=== PATIENT | female | born 1945 | race Caucasian/White ===

== ENCOUNTER 2017-09-16 01:58 | Observation (INO) | payer OTHER ==
[~2017-09-16] VITALS: Ht 160 cm; Wt 59.4 kg
--- NOTE | 2017-09-16 02:11 | ED CARDIAC/CP/PALPITATIONS ---
History of Present Illness General Chief Complaint: Chest Pain Stated Complaint: C/C CHEST PAIN Source: patient, family Exam Limitations: no limitations, unable to give history Vital Signs & Intake/Output Vital Signs & Intake/Output Vital Signs Date Time Temp Pulse Resp B/P B/P Pulse O2 O2 Flow FiO2 Mean Ox Delivery Rate 09/16 0327 65 18 140/75 97 Room Air 09/16 0238 69 144/80 09/16 0234 145 150/82 09/16 0209 Room Air 09/16 0206 97.5 132 18 150/82 97 Room Air Allergies Coded Allergies: No Known Allergies (09/16/17) Reconcile Medications Hydrochlorothiazide 25 MG TABLET 1 TAB PO DAILY BP (Reported) Sertraline HCl 100 MG TABLET 1 TAB PO DAILY DEPRESSION (Reported) Triage Note: PT TO TRIAGE C/O CP RADIATING INTO L ARM THAT BEGAN WHEN LYING IN BED TONIGHT. PT STATES "I DONT KNOW IF IT'S JUST STRESS." HX HTN. 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 DENIES SOB. Triage Nurses Notes Reviewed? yes Onset: Gradual Duration: hour(s): Timing: recent history Quality/Severity: moderate Location: central Radiation: jaw Activities at Onset: sleep Prior Chest Pain/Card Workup: no prior cardiac workup Modifying Factors: Improves With: rest. Associated Symptoms: palpitations, chest pain HPI: 72 yo woman h/o htn and elevated cholesterol, presents with 6/10 chest pain, now 3/10, with palpitations mild dizziness, chest pressure that radiated to jaw. Her symptoms started at 11pm. She notes no shortness of breath, dyspnea, chills, fever, cough. She has not taken allergy medications or alcohol. She is otherwise well. Past History Travel History Traveled to [place] past 21 day No Medical History Any Pertinent Medical History? 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 No Review of Systems Review of Systems Constitutional: Reports: no symptoms. EENTM: Reports: no symptoms. Respiratory: Reports: no symptoms. Cardiovascular: Reports: no symptoms. GI: Reports: no symptoms. Genitourinary: Reports: no symptoms. Musculoskeletal: Reports: no symptoms. Skin: Reports: no symptoms. Neurological/Psychological: Reports: no symptoms. Hematologic/Endocrine: Reports: no symptoms. Immunologic/Allergic: Reports: no symptoms. All Other Systems: Reviewed and Negative Physical Exam Physical Exam Cardiovascular: bradycardia, irregularly irregular Rectal: normal rectal tone, heme negative stool Comments: Review of Systems - except as otherwise noted in HPI Physical Exam Physical Exam General Appearance: well developed/nourished, no apparent distress Head: atraumatic, normal appearance Eyes: Bilateral: normal appearance. Ears, Nose, Throat: normal pharynx, normal ENT inspection Neck: normal inspection, supple, full range of motion Respiratory: normal breath sounds, chest non-tender, no respiratory distress, quiet respiration, lungs clear Cardiovascular:tachy, irregular Gastrointestinal: normal bowel sounds, soft, non-tender, no organomegaly Back: normal inspection, normal range of motion Extremities: normal inspection, normal capillary refill, normal range of motion, no edema Neurologic/Psych: no motor/sensory deficits, awake, alert, oriented x 3 Skin: intact, normal color, warm/dry Core Measures ACS in differential dx? No CVA/TIA Diagnosis No Sepsis Present: No Sepsis Focused Exam Completed? No Progress Differential Diagnosis: afib, unstable angina vs other. Plan of Care: Orders Procedure Date/time Status Saline Lock 09/[address] in observation 09/16 357 Active ED Holding Orders 09/16 357 Active Vital Signs 09/16 357 Active Code Status 09/16 357 Active EKG 09/16 0243 Active Add-on Test (ER Only) 09/16 0226 Active PARTIAL THROMBOPLASTIN TIME 09/16 021 Complete PROTHROMBIN TIME 09/16 0211 Complete TROPONIN LEVEL 09/16 209 Complete LIPASE 09/16 021 Complete HEPATIC FUNCTION PANEL 09/16 021 Complete D-DIMER 09/16 021 Complete CBC WITHOUT DIFFERENTIAL 09/16 209 Complete BASIC METABOLIC PANEL 09/16 021 Complete AMYLASE 09/16 021 Complete EKG 09/16 0201 Active Current Medications Sig/Shannan Start time Last Medication Dose Stop Time Status Admin Heparin Sodium 25,000 UNIT Q24H 09/16 0230 UNVr 09/16 (Porcine) 0253 (Heparin) Sodium Chloride 500 ML Laboratory Tests 09/16/17 0211: Anion Gap 10, Estimated GFR > 60, BUN/Creatinine Ratio 21.7, Glucose 108 H, Calcium 9.9, Total Bilirubin 0.5, Direct Bilirubin 0.1, AST 26, ALT 26, Alkaline Phosphatase 48, Troponin I < 0.01, Total Protein 7.2, Albumin 4.3, Amylase 75, Lipase 217, PT 10.4, INR 0.95, APTT 29, D-Dimer High Sensitivty 281 H, CBC w Diff NO MAN DIFF REQ, RBC 4.64, MCV 94.5, MCH 33.2 H, MCHC 35.1, RDW 13.2, MPV 8.0, Gran % 39.6 L, Lymphocytes % 47.4, Monocytes % 8.3, Eosinophils % 3.8, Basophils % 0.9, Absolute Granulocytes 2.7, Absolute Lymphocytes 3.3, Absolute Monocytes 0.6, Absolute Eosinophils 0.3, Absolute Basophils 0.1 Diagnostic Imaging: Viewed by Me: Radiology Read. Discussed w/RAD: Radiology Read. Initial ED EKG: AFIB, afib with rvr Repeat EKG: changed (nsr, without acute changes) Departure Departure Disposition: STILL A PATIENT Condition: Stable Clinical Impression Primary Impression: Chest pain Secondary Impressions: Atrial fibrillation with rapid ventricular response Referrals: Maria Elena KHAN,Xavier Roberts (PCP/Family) Departure Forms: Customer Survey General Discharge Information Observation Note Spoke With: Marquez KHAN,Earle Collado Patient In: Non-ED OBS Care Area Rationale for Observation: My rational for observation is as follows . pt with chest pain, with brief run of afib with rapid ventricular response requiring parenteral medications for control. pt merits monitoring, rule out, cards evaluation. Critical Care Note Critical Care Note Critical Care Time: 30-74 min
[2017-09-16 02:19] LABS: ABSOLUTE BASOPHIL COUNT 0.1 /CUMM (0.0-0.2); ABSOLUTE EOSINOPHIL COUNT 0.3 /CUMM (0.0-0.7); ABSOLUTE GRANULOCYTE CT 2.7 /CUMM (1.4-6.5); ABSOLUTE LYMPH COUNT 3.3 /CUMM (1.2-3.4); ABSOLUTE MONOCYTE COUNT 0.6 /CUMM (0.10-0.60); BASOPHIL % 0.9 % (0.0-2.0); EOSINOPHIL % 3.8 % (0-5); GRANULOCYTE % 39.6 % (42.2-75.2); HEMATOCRIT 43.9 % (37-47); MEAN CORPUSCULAR HGB 33.2 PG (27.0-31.0); MEAN CORPUSCULAR HGB CONC 35.1 G/DL (33.0-37.0); MEAN CORPUSCULAR VOLUME 94.5 FL (81.0-99.0); PLATELET COUNT 276 /CUMM (130-400); RBC DISTRIBUTION WIDTH 13.2 % (11.5-14.5); RED BLOOD CELL CT 4.64 /CUMM (4.20-5.40); WHITE BLOOD CELL COUNT 6.9 /CUMM (4.8-10.8)
[2017-09-16 02:51] LABS: PT 10.4 SEC (9.4-12.5); PTT 29 SEC (25-37)
[2017-09-16] MEDS ORDERED: HYDROCHLOROTHIA25 M1 PO (03:04)
[2017-09-16] MEDS ORDERED: SERTRALINE HCL100 MG PO (03:04)
--- NOTE | 2017-09-16 03:41 | RADIOLOGY REPORT ---
EXAMINATION: XR PORTABLE CHEST CLINICAL INFORMATION: Chest pain COMPARISON: 05/14/2006 TECHNIQUE: Portable frontal view of the chest was obtained. FINDINGS: Lung volumes are symmetric. Minimal left basilar atelectasis is suspected without additional consolidation bilaterally. No evidence of pneumothorax, pleural effusion, or pulmonary edema. Cardiac size is within normal limits. Calcification is present at the aortic arch. No acute osseous findings are seen. IMPRESSION: No acute cardiopulmonary findings.
--- NOTE | 2017-09-16 04:00 | History & Physical ---
Lalit Escobar MD 09/16/17 0359: General Information and HPI MD Statement: I have seen and personally examined ROCIO MACIAS and documented this H&P. The patient is a 72 year old F who presented with a patient stated chief complaint of [chest pain, palpitations]. Source of Information: patient Exam Limitations: no limitations History of Present Illness: Patient is a 72-year-old female with a PMH significant for HTN, HLD, extensive family cardiac history including multiple first-degree relatives with early AK, who presents to the [facility] ED complaining of chest pain/pressure, and palpitations. She reports that she was trying to fall asleep yesterday evening she began experiencing palpitations and a pressure like pain which she described as moderate on the left side of the chest which radiated to the left side of the chest, she also reported associated tightness of her neck and nausea but denied any shortness of breath, lightheadedness, diaphoresis, vomiting, syncope. She took 4 baby aspirin prior to coming to the ED. Her symptoms abated after receiving full dose aspirin and 5 mg IV metoprolol in the ED. At time of examination, she is asymptomatic. Patient follows with employment case manager Dr. Jh Blakely, and had a stress test approximately 1 year ago which was negative. Of note patient has known HLD however has not been able to tolerate any medical therapy Allergies/Medications Allergies: Coded Allergies: No Known Allergies (09/16/17) Home Med list Hydrochlorothiazide 25 MG TABLET 1 TAB PO DAILY BP (Reported) Sertraline HCl 100 MG TABLET 1 TAB PO DAILY DEPRESSION (Reported) Past History Travel History Traveled to [place] past 21 day No Medical History Neurological: NONE EENT: NONE Cardiovascular: hypertension Respiratory: NONE Gastrointestinal: NONE Hepatic: NONE Renal: NONE Musculoskeletal: NONE Psychiatric: depression Endocrine: NONE Blood Disorders: NONE Cancer(s): NONE 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 FATHER FH: myocardial infarction, Onset: 40-50. BROTHER FH: myocardial infarction, Onset: 60+. SISTER FH: myocardial infarction, Onset: 50-60. Psychosocial History Primary Language: Occitan Smoking Status: Never Smoked ETOH Use: occasional use Illicit Drug Use: denies illicit drug use Functional Ability ADLs Independent: dressing, eating, toileting, bathing. Ambulation: independent IADLs Independent: shopping, housework, finances, food prep, telephone, transportation , medication admin. Review of Systems Review of Systems Constitutional: Denies: chills, fever, malaise. EENTM: Denies: blurred vision, double vision, visual changes. Cardiovascular: Reports: chest pain, palpitations. Denies: peripheral edema, syncope. Respiratory: Denies: cough, sputum production. GI: Reports: nausea. Denies: melena, bloody stool, vomiting. Genitourinary: Denies: discharge, dysuria, frequency. Musculoskeletal: Reports: no symptoms. Skin: Reports: no symptoms. Neurological/Psychological: Reports: no symptoms. Exam & Diagnostic Data Last 24 Hrs of Vital Signs/I&O Vital Signs Date Time Temp Pulse Resp B/P B/P Pulse O2 O2 Flow FiO2 Mean Ox Delivery Rate 09/16 0327 97.3 65 18 140/75 97 Room Air 09/16 0238 69 144/80 09/16 0234 145 150/82 09/16 0209 Room Air 09/16 0206 97.5 132 18 150/82 97 Room Air Intake & Output 09/16 0800 09/16 0000 09/15 1600 Intake Total 0 Output Total Balance 0 Intake, Oral 0 Patient 131 lb Weight Weight Standing Scale Measurement Method Physical Exam General Appearance Alert, Oriented X3, Cooperative, No Acute Distress Skin Temp/Moisture Exam: Warm/Dry Sepsis Skin Exam (color): Normal for Ethnicity HEENT Atraumatic, PERRLA, EOMI, Mucous Membr. moist/pink Cardiovascular Regular Rate, Normal S1, Normal S2, No Murmurs Lungs Clear to Auscultation, Normal Air Movement Abdomen Normal Bowel Sounds, Soft, No Tenderness Neurological Normal Speech, Strength at 5/5 X4 Ext, Normal Tone, Sensation Intact, Cranial Nerves 3-12 NL Extremities No Clubbing, No Cyanosis, No Edema Last 24 Hrs of Labs/Corey: Laboratory Tests 09/16/17 0211: Anion Gap 10, Estimated GFR > 60, BUN/Creatinine Ratio 21.7, Glucose 108 H, Calcium 9.9, Magnesium 1.7, Total Bilirubin 0.5, Direct Bilirubin 0.1, AST 26, ALT 26, Alkaline Phosphatase 48, Troponin I < 0.01, Total Protein 7.2, Albumin 4.3, Amylase 75, Lipase 217, TSH &T3 &Free T4 Intrp Pending, PT 10.4, INR 0.95, APTT 29, D-Dimer High Sensitivty 281 H, CBC w Diff NO MAN DIFF REQ, RBC 4.64, MCV 94.5, MCH 33.2 H, MCHC 35.1, RDW 13.2, MPV 8.0, Gran % 39.6 L, Lymphocytes % 47.4, Monocytes % 8.3, Eosinophils % 3.8, Basophils % 0.9, Absolute Granulocytes 2.7, Absolute Lymphocytes 3.3, Absolute Monocytes 0.6, Absolute Eosinophils 0.3, Absolute Basophils 0.1 Diagnostic Data EKG Results initial EKG - A fib HR 136, QTc 422 follow-up EKG- NSR HR 69 with nonspecific T wave changes in V3-V6 CXR Results Lung volumes are symmetric. Minimal left basilar atelectasis is suspected without additional consolidation bilaterally. No evidence of pneumothorax, pleural effusion, or pulmonary edema. Cardiac size is within normal limits. Calcification is present at the aortic arch. No acute osseous findings are seen. IMPRESSION: No acute cardiopulmonary findings. Assessment/Plan Assessment: Patient is a 72-year-old female with a PMH significant for HTN, HLD, extensive family cardiac history including multiple first-degree relatives with early AK, who presents to the [facility] ED complaining of chest pain/pressure, and palpitations. Vital signs on admission: T 97.5, P132 (decreased to 60s after resolution of A. fib), RR 18, BP 150/82, pulse ox 97% on room air Labs: CBC unremarkable, potassium 3.4, troponin <0.01, d-dimer 281 Problem list #Paroxysmal A. fib with RVR, now in normal sinus rhythm #Hypokalemia #chest pain, strong family history of cardiovascular disease #Chronic medical problems including HTN, HLD Plan -Observe on telemetry -Continuous telemetry monitoring -Serial troponins and EKGs -Echocardiogram -Cardiology consult will be placed in a.m. -Follow-up thyroid function tests, magnesium -potassium repleted, follow-up repeat BEP -Continue home medication list -Start metoprolol 12.5 twice daily Diet: Heart healthy DVT prophylaxis: Subcutaneous heparin, Alps CODE STATUS: Full code As Ranked By This Provider Problem List: 1. Atrial fibrillation with rapid ventricular response 2. Chest pain Core Measures/Misc (01/01) Acute Coronary Syndrome ACS Diagnosis: No Congestive Heart Failure Congestive Heart Failure Diagnosis No Cerebrovascular Accident CVA/TIA Diagnosis: No VTE (View Protocol) VTE Risk Factors Age>40 No Mechanical VTE Prophylaxis d/t N/A MechProphylax Ordered No VTE Pharm Prophylaxis d/t NA PharmProphylax ordered Sepsis (View protocol) Sepsis Present: No If YES complete Sepsis Event Note If YES complete Sepsis Event Note Observation Initial Note - I have personally examined ROCIO MACIAS on 09/16/17 at 0509. The disposition of ROCIO MACIAS is uncertain at this time and before a determination can be made, she requires a period of observation for the following reasons [a fib and chest pain] [facility] 09/16/17 0521: Core Measures/Misc (01/01) Sepsis (View protocol) If YES complete Sepsis Event Note If YES complete Sepsis Event Note Resident Review Statement Resident Statement: examined this patient, discussed with finance intern, agreed with finance intern, discussed with family Other Findings: This is 72-year-old female with past medical history significant for hypertension, hyperlipidemia, extensive cardiac family history who presented to the ED with a chief complaint of palpitation and chest pain. Her symptoms started last night as palpitation and pressure-like, continuous, moderate to severe, left-sided chest pain. She was trying to fall asleep when the pain started. She reports nausea but denies any other symptom. The patient talk total of 325 mg of aspirin on her way to the ED. her symptom disappeared after she received another 325 mg aspirin and 5 mg of IV metoprolol while in the ED. initial EKG proved A. fib, she converted to normal sinus rhythm after the IV metoprolol. She is following with Dr. Martini and had a stress test done around a year ago without significant finding. She has a history of dyslipidemia, however she was not able to tolerate any anti-dyslipidemic medications. Problem list * Hypertension * Hyperlipidemia * Depression * New onset A. fib * Strong cardiac family history with early onset AK Plan * normal TSH, no signs of infection, chest x-ray did not show acute cardiopulmonary finding, in NSR * Admit to telemetry floor as an obes * Rule out ACS with serial troponin and EKG, first set is negative * Will start metoprolol 12.5 mg twice daily, until further recommendations by employment case manager * We will hold on anticoagulation, given she converted back to normal sinus rhythm with a less than 48 hours, especially that she need to be off anticoagulation for spinal injection for chronic pain. * Echocardiogram * We will check TSH * We will replete potassium and check magnesium level * Heart healthy diet * DVT prophylaxis with subcu heparin * Full code Earle Zayas MD 09/16/17 0535: Core Measures/Misc (01/01) Sepsis (View protocol) If YES complete Sepsis Event Note If YES complete Sepsis Event Note Attending MD Review Statement Attending Statement Attending MD Statement: examined this patient, discuss w/resident/PA/DANCE INSTRUCTOR, agreed w/resident/PA/DANCE INSTRUCTOR, discussed with nursing Attending Assessment/Plan: Ms. Macias is a 72-year-old female with history of hypertension dyslipidemia extensive cardiac history in the family presents with complaints of palpitation and chest pain. And found to be in atrial fibrillation with rapid ventricular rate. Was given IV metoprolol. Patient spontaneously converted to sinus rhythm. Will obtain echocardiogram and thyroid function tests. Obtain cardiology consultation. Trend EKG and cardiac enzymes. Replace electrolytes and repeat. DVT prophylaxis with subcutaneous heparin. Patient will be in telemetry Under observation status.
[2017-09-16 06:22] VITALS: BP 128/80
[2017-09-16 08:34] VITALS: BP 132/80
--- NOTE | 2017-09-16 09:28 | Cons- Cardiology ---
General Information and HPI Consulting Request Date of Consult: 09/16/17 Requested By: Earle Zayas MD Reason for Consult: Paroxysmal atrial fibrillation; chest discomfort Source of Information: patient, old records Exam Limitations: no limitations History of Present Illness: The patient is a very nice 72-year-old female who is followed by Dr. Arredondo and Jh Martini as her primary physician and primary check services clerk. The patient has a past medical history significant for hypertension, hyperlipidemia, and a strong family history of cardiac issues. The patient presented to the emergency room last evening with complaints of chest pressure and palpitations. While trying to fall asleep, she developed palpitations and a pressure sensation in her chest. The symptoms radiated up to the left side of her chest. In the emergency room, she was noted to be in atrial fibrillation. Following the administration of metoprolol, she reverted to sinus rhythm. Since that time, she has been asymptomatic. The patient notes that she had a similar very brief episode of these symptoms more than a year ago. Also, according to the patient, she had a stress test 1 year ago which was normal. She does have a history of hyperlipidemia, however, and has been intolerant of any statin therapy. At the time I saw the patient, she was sitting in bed, asymptomatic. No recurrence of any arrhythmias noted on the monitor Allergies/Medications Allergies: Coded Allergies: No Known Allergies (09/16/17) Home Med List: Hydrochlorothiazide 25 MG TABLET 1 TAB PO DAILY BP (Reported) Metoprolol Tartrate 25 MG TABLET 0.5 TAB PO BID RAPID HEART RATE . Sertraline HCl 100 MG TABLET 1 TAB PO DAILY DEPRESSION (Reported) Current Medications: Current Medications Sig/Shannan Start time Last Medication Dose Route Stop Time Status Admin Aspirin 0 .STK-MED ONE 09/16 0252 DC PO Aspirin 325 MG ONCE ONE 09/16 0230 DC 09/16 PO 09/16 023 0248 Diltiazem HCl 125 MG Q24H 09/16 023 DC Dextrose/Water 100 ML IV Heparin Sodium 5,000 UNIT Q8 09/16 0600 AC (Porcine) SC Heparin Sodium 0 .STK-MED ONE 09/16 0237 DC (Porcine) .ROUTE Heparin Sodium 5,000 UNIT ONCE ONE 09/16 0230 DC 09/16 (Porcine) IV 09/16 0231 0248 Heparin Sodium 25,000 UNIT Q24H 09/16 0230 DC 09/16 (Porcine) IV 0253 Sodium Chloride 500 ML Hydrochlorothiazide 25 MG DAILY 09/16 0900 AC 09/16 PO 0833 Magnesium Sulfate 1 GM ONCE ONE 09/16 529 AC 09/16 Dextrose/Water 100 ML IV 09/16 928 08 Metoprolol Tartrate 12.5 MG BID 09/16 09 AC 09/16 PO 0834 Metoprolol Tartrate 0 .STK-MED ONE 09/16 0237 DC IV Metoprolol Tartrate 5 MG ONCE ONE 09/16 023 DC 09/16 IV 09/16 023 023 Potassium Chloride 0 .STK-MED ONE 09/16 0450 DC PO Potassium Chloride 60 MEQ ONCE ONE 09/16 0430 DC 09/16 PO 09/16 043 044 Sertraline HCl 100 MG DAILY 09/16 09 DC PO Sertraline HCl 50 MG DAILY 09/16 0900 AC PO Past History Travel History Traveled to [place] past 21 day No Medical History Blood Transfusion Hx: No Neurological: NONE EENT: NONE Cardiovascular: hypertension Respiratory: NONE Gastrointestinal: NONE Hepatic: NONE Renal: NONE Musculoskeletal: NONE Psychiatric: depression Endocrine: NONE Blood Disorders: NONE Cancer(s): NONE DIRECTOR HEMATOLOGY/Reproductive: NONE Surgical History Surgical History: cholecystectomy Family History Relations & Conditions If Any: MOTHER FH: myocardial infarction, Onset: 50-60. FATHER FH: myocardial infarction, Onset: 40-50. BROTHER FH: myocardial infarction, Onset: 60+. SISTER FH: myocardial infarction, Onset: 50-60. Psychosocial History Primary Language: Welsh Smoking Status: Never Smoked ETOH Use: occasional use Illicit Drug Use: denies illicit drug use Functional Ability ADLs Independent: dressing, eating, toileting, bathing. Ambulation: independent IADLs Independent: shopping, housework, finances, food prep, telephone, transportation , medication admin. Exam & Diagnostic Data Vital Signs and I&O Vital Signs Date Time Temp Pulse Resp B/P B/P Pulse O2 O2 Flow FiO2 Mean Ox Delivery Rate 09/16 0834 72 132/80 09/16 0622 98.1 64 20 128/80 95 Room Air 09/16 0544 Room Air 09/16 0518 98.4 62 18 132/84 95 Room Air 09/16 0327 97.3 65 18 140/75 97 Room Air 09/16 0238 69 144/80 09/16 0234 145 150/82 09/16 0209 Room Air 09/16 0206 97.5 132 18 150/82 97 Room Air Intake & Output 09/16 0809/16 0000 09/15 0800 09/15 0000 Intake Total 440 Output Total Balance 440 Intake, Oral 440 Patient 131 lb Weight Weight Standing Scale Measurement Method Physical Exam: General Appearance: well developed/nourished, alert, awake, oriented Head: normal HEENT: Normal Neck: supple, JVP normal, carotid upstrokes normal bilaterally, no masses or thyromegaly Respiratory: chest non-tender, clear to auscultation and percussion bilaterally Cardiovascular: regular rate/rhythm, normal S1, S2, 1/6 systolic murmur Abdomen: normal bowel sounds, soft, non-tender Extremities: normal inspection, no edema Vascular: Pulses are 2+ and equal bilaterally Neurologic: Grossly normal/nonfocal Labs/Corey Results: Laboratory Tests 09/16 09/16 0855 0820 Chemistry Troponin I Pending Coagulation APTT Cancelled 09/16 0211 Chemistry Sodium (137 - 145 mmol/L) 138 Potassium (3.5 - 5.1 mmol/L) 3.4 L Chloride (98 - 107 mmol/L) 101 Carbon Dioxide (22 - 30 mmol/L) 27 Anion Gap (5 - 16) 10 BUN (7 - 17 mg/dL) 13 Creatinine (0.5 - 1.0 mg/dL) 0.6 Estimated GFR (>60 ml/min) > 60 BUN/Creatinine Ratio (7 - 25 %) 21.7 Glucose (65 - 99 mg/dL) 108 H Calcium (8.4 - 10.2 mg/dL) 9.9 Magnesium (1.6 - 2.3 mg/dL) 1.7 Total Bilirubin (0.2 - 1.3 mg/dL) 0.5 Direct Bilirubin (< 0.4 mg/dL) 0.1 AST (14 - 36 U/L) 26 ALT (9 - 52 U/L) 26 Alkaline Phosphatase (<127 U/L) 48 Troponin I (< 0.11 ng/ml) < 0.01 Total Protein (6.3 - 8.2 g/dL) 7.2 Albumin (3.5 - 5.0 g/dL) 4.3 Amylase (30 - 110 U/L) 75 Lipase (23 - 300 U/L) 217 TSH &T3 &Free T4 Intrp (0.270 - 4.20 uIU/mL) 3.960 Coagulation PT (9.4 - 12.5 SEC) 10.4 INR (0.90 - 1.19) 0.95 APTT (25 - 37 SEC) 29 D-Dimer High Sensitivty (0 - 243 ng/ml) 281 H Hematology CBC w Diff NO MAN DIFF REQ WBC (4.8 - 10.8 /CUMM) 6.9 RBC (4.20 - 5.40 /CUMM) 4.64 Hgb (12.0 - 16.0 G/DL) 15.4 Hct (37 - 47 %) 43.9 MCV (81.0 - 99.0 FL) 94.5 MCH (27.0 - 31.0 PG) 33.2 H MCHC (33.0 - 37.0 G/DL) 35.1 RDW (11.5 - 14.5 %) 13.2 Plt Count (130 - 400 /CUMM) 276 MPV (7.4 - 10.4 FL) 8.0 Gran % (42.2 - 75.2 %) 39.6 L Lymphocytes % (20.5 - 51.1 %) 47.4 Monocytes % (1.7 - 9.3 %) 8.3 Eosinophils % (0 - 5 %) 3.8 Basophils % (0.0 - 2.0 %) 0.9 Absolute Granulocytes (1.4 - 6.5 /CUMM) 2.7 Absolute Lymphocytes (1.2 - 3.4 /CUMM) 3.3 Absolute Monocytes (0.10 - 0.60 /CUMM) 0.6 Absolute Eosinophils (0.0 - 0.7 /CUMM) 0.3 Absolute Basophils (0.0 - 0.2 /CUMM) 0.1 Diagnostic Data EKG Results ECG #1-atrial for ablation with rapid ventricular rate and diffuse nonspecific ST segment changes ECG #2-sinus rhythm with nonspecific anterior ST-T changes ECG #3 - NSR with persistent anterolateral STT changes CXR Results FINDINGS: Lung volumes are symmetric. Minimal left basilar atelectasis is suspected without additional consolidation bilaterally. No evidence of pneumothorax, pleural effusion, or pulmonary edema. Cardiac size is within normal limits. Calcification is present at the aortic arch. No acute osseous findings are seen. IMPRESSION: No acute cardiopulmonary findings. Assessment/Plan Assessment/Plan Assessment: 1. Paroxysmal atrial fibrillation with associated chest discomfort - The patient has been asympotatic since reverting to NSR last evening. Her troponin x 2 is negative. Her ECG shows NSR with anterolateral STT changes which were not noted on her old ECGs. Her Echocardiogram shows normal LV function with no wallmotion abnormalities. 2. Strong family history of cardiac issues 3. Hyperlipidemia 4. Mild hypokalemia Recommendations: -At the moment, the patient is asymptomatic and her serial troponins are normal. Echocardiogram is pending; ECG changes noted. -Continue metoprolol 12.5 mg twice daily -Replete potassium and magnesium -I had an extended discussion with the patient about the importance of considering long-term anticoagulation in her case. Her chads vas score is 3. The patient notes, however, that she has upcoming back/epidural injections this week. After an extended discussion, in view of the fact that the episode of atrial fibrillation was self-limited and brief, and in view of the fact that she has upcoming back injections which require her to be off of anticoagulant therapy, we have elected to not institute anticoagulation today. The patient will follow up with Dr. Martini this week, and make plans for starting oral anticoagulation after her epidural injections this coming week. The patient understands that if she has any evidence of recurrent symptoms, this may need to be readdressed - The patient reportedly had a normal stress test this past year. In view of her symptoms while in rapid atrial fibrillation, her new ECG changes and her normal echocardiogram, I believe she will need reassessment of her coronary status as outpatient, with cardiology followup, followup ECG and likely followup nuclear stress test at least. She promises to contact Dr. Blakely on Monday. - The patient also plans to readdress her lipid issues with Dr. Blakely when she sees him. - The patient will return to the ER if there are any significant recurrent symptoms. Consult Acknowledgment - Thank you for your consult request.
--- NOTE | 2017-09-16 11:04 | PN- Att Addend ---
Attending Addendum Attending Brief Note Patient seen and examined. She feels well right now. She is a 72-year-old female with a past medical history of hypertension, hyperlipidemia, follows an outpatient with Dr. Jh Martini for cardiology. She came in with resting chest pain. Was radiating to her arm. In the ED she was in transient atrial fibrillation and converted after 1 dose of IV metoprolol. Initially anticoagulation was started but after she converted to sinus in less than a few hours the anticoagulation was stopped. She is ruled out with serial enzymes. Will follow-up as per cardiology. Right now we have her on the beta heidi low -dose by mouth with her hydrochlorothiazide and will follow-up.
[2017-09-16] MEDS ORDERED: METOPROLOL TART25 M1 PO ×4 (12:37→13:41)
--- NOTE | 2017-09-16 12:40 | Patient Discharge Instructions ---
Discharge Instructions General Discharge Information You were seen/treated for: afib Watch for these problems: palpitation chest pain shortness of breath dizziness Special Instructions: 1. Please start taking metoprolol 2. Please follow up with your crime scene analyst 3. You are not going on Anticoagulation at this time, but it is very important for your to follow up regarding this issue. 4. Please eat Potassium and Magnesium rich foods in your diet. Diet Continue normal diet: Yes Acute Coronary Syndrome Inclusion Criteria At DC or during hospital stay patient has or had the following: ACS DIAGNOSIS No Discharge Core Measures Meds if any: Prescribed or Continued at Discharge Meds if any: NOT Prescribed or Continued at Discharge Congestive Heart Failure Inclusion Criteria At DC or during hospital stay patient has or had the following: CHF DIAGNOSIS No Discharge Core Measures Meds if any: Prescribed or Continued at Discharge Meds if any: NOT Prescribed or Continued at Discharge Cerebrovascular accident Inclusion Criteria At DC or during hospital stay patient has or had the following: CVA/TIA Diagnosis No Discharge Core Measures Meds if any: Prescribed or Continued at Discharge Meds if any: NOT Prescribed or Continued at Discharge Venous thromboembolism Inclusion Criteria VTE Diagnosis No VTE Type NONE VTE Confirmed by (Test) NONE Discharge Core Measures - Per Current guidelines, there needs to be overlap - treatment for the first 5 days of Warfarin therapy. - If discharged on Warfarin prior to 5 days of - overlap therapy, the patient will need to be - assessed for post discharge needs including - *Post discharge parental anticoagulation - *Warfarin and/or parental anticoagulation education - *Follow up date to check INR post discharge At least 5 days overlap therapy as Inpatient No Meds if any: Prescribed or Continued at Discharge Note: Overlap Therapy is Warfarin and Anticoagulant Meds if any: NOT Prescribed or Continued at Discharge
--- NOTE | 2017-09-16 17:23 | ECHOCARDIOGRAM REPORT ---
ROCIO MACIAS Age: 72 : 1945 Gender: F Exam Date: 09/16/2017 11:15 Exam Location: 1 [address] Ht (in): 63 Wt (lb): 131 BSA: 1.63 BP: 128 / 80 Ordering Physician: Abundio Allan MD Referring Physician: Abundio Allan MD Technologist: Flores Miller [facility] Room Number: 185-2 Indications: Rhythm: Sinus Technical Quality: Fair, Technically difficult study FINDINGS Left Ventricle Normal size left ventricle. No obvious regional wall motion abnormalities. Normal left ventricular ejection fraction estimated at 55-60%. Right Ventricle Right ventricle not well visualized, grossly normal. Right Atrium Right atrial dilatation. Left Atrium Left atrial size at the upper limits of normal. Mitral Valve Mitral valve thickened. Trace mitral regurgitation. Aortic Valve Trileaflet aortic valve. Diffuse thickening (sclerosis) of the aortic valve cusps without reduced excursion. No aortic stenosis. No aortic regurgitation. Tricuspid Valve Tricuspid valve not well visualized, grossly normal. Moderate tricuspid regurgitation. Right ventricular systolic pressure estimated at 30 mmHg. Pulmonic Valve Pulmonic valve not well visualized, grossly normal. Pericardium No pericardial effusion. Great Vessels Normal size aortic root and proximal ascending aorta. CONCLUSIONS 1. This was a technically difficult examination. 2. Ipre-na-djxtoahx aortic sclerosis is present with no valvular stenosis or insufficiency. 3. Mitral leaflet thickening is present with minimal mitral insufficiency. 4. No significant pericardial fluid was detected on the study. 5. The left ventricular chamber size is normal with a normal ejection fraction and no visible resting wall motion abnormalities. 6. Moderate tricuspid insufficiency is present. Mild right atrial enlargement is noted. There is no evidence of pulmonary hypertension. 7. No prior study was available for comparison. Mere Piedra M.D. (Electronically Signed) Final Date: 16 September 2017 17:22 MEASUREMENTS (Male / Female) Normal Values 2D ECHO LV Diastolic Diameter PLAX 4.4 cm 4.2 - 5.9 / 3.9 - 5.3 cm LV Systolic Diameter PLAX 2.6 cm 2.1 - 4.0 cm LV Fractional Shortening PLAX 40.9 % 25 - 46 % LV Ejection Fraction 2D Teich 71.9 % IVS Diastolic Thickness 0.8 cm LVPW Diastolic Thickness 1.0 cm LV Relative Wall Thickness 0.4 LVOT Diameter 1.5 cm Aortic Root Diameter 3.1 cm LA Systolic Diameter LX 2.3 cm 3.0 - 4.0 / 2.7 - 3.8 cm LV Diastolic Length 4C 7.0 cm 6.9 - 10.3 cm LV Diastolic Area 4C 27.6 cm LV Diastolic Volume MOD 4C 89.0 cm LV Ejection Fraction MOD 4C 48.3 % LV Stroke Volume MOD 4C 43.0 cm LV Systolic Length 4C 6.9 cm LV Systolic Area 4C 19.2 cm LV Systolic Volume MOD 4C 46.0 cm LV Ejection Fraction MOD 2C 64.7 % LV Diastolic Volume 4C AL 93.2 cm 85 - 139 / 69 - 109 cm LV Systolic Volume 4C AL 45.5 cm LV Ejection Fraction 4C AL 51.1 % LV Stroke Volume 4C AL 47.6 cm LV Ejection Fraction 2C AL 64.2 % DOPPLER AV Peak Velocity 126.0 cm/s AV Peak Gradient 6.4 mmHg LVOT Peak Velocity 111.0 cm/s LVOT Peak Gradient 4.9 mmHg AV Area Cont Eq pk 1.6 cm Mitral E Point Velocity 46.9 cm/s Mitral A Point Velocity 71.6 cm/s Mitral E to A Ratio 0.7 MV Deceleration Time 264.0 ms TV Peak Velocity 246.0 cm/s PV Peak Velocity 105.0 cm/s PV Peak Gradient 4.4 mmHg LV E' Lateral Velocity 7.1 cm/s Mitral E to LV E' Lateral Ratio 6.6 LV E' Septal Velocity 5.8 cm/s Mitral E to LV E' Septal Ratio 8.2
== END 2017-09-16 13:40 ==
LOC: ERH 01:58 → ERHI 03:58 → 1NO 03:58 → ENRESERV 05:02 → 1NO 05:39 → ENPENDDIS 12:43 → 1NO 13:40
PROVIDERS: Pediatrics
DX: I48.0 Paroxysmal atrial fibrillation (principal); R07.89 Other chest pain; I10 Essential (primary) hypertension; E78.5 Hyperlipidemia, unspecified; F32.9 Major depressive disorder, single episode, unspecified; E87.6 Hypokalemia
CPT/HCPCS: 6020; 36592; 71045; 93005; 93010; 93306; 96374; 96375; 96376; G0378; J1644

== ENCOUNTER 2017-09-28 19:28 | Observation (INO) | payer OTHER ==
[~2017-09-28] VITALS: Ht 160 cm; Wt 58.8 kg
[~2017-09-28 19:28] MED LIST: HYDROCHLOROTHIA25 M1 PO; METOPROLOL TART25 M1 PO; SERTRALINE HCL100 MG PO
--- NOTE | 2017-09-28 20:10 | ED CARDIAC/CP/PALPITATIONS ---
History of Present Illness General Chief Complaint: Chest Pain Stated Complaint: "CP AND HEART PALPITATIONS X 45MINS" PER PT Source: patient, old records Exam Limitations: no limitations Vital Signs & Intake/Output Vital Signs & Intake/Output ED Intake and Output 09/30 0000 09/29 1200 Intake Total 1140 Output Total 850 Balance 290 Intake, IV 500 Intake, Oral 640 Output, Urine 850 Patient 130 lb Weight Allergies Coded Allergies: No Known Allergies (09/16/17) Reconcile Medications Metoprolol Tartrate 25 MG TABLET 1 TAB PO BID HEART RATE Sertraline HCl 100 MG TABLET 1 TAB PO DAILY DEPRESSION (Reported) Triage Note: PT TO TRIAGE C/O CP AND HEART PALPITATIONS X45 MIN THAT BEGAN AT REST. PER PT SEEN HERE RECENTLY FOR SAME, HX AFIB. DENIES N/V. PT NOT DIAPHORETIC, DENIES RADIATING PAIN, SOB, NUMBNESS/TINGLING OR DIZZINESS. EKG IN PROGRESS. Triage Nurses Notes Reviewed? yes Onset: Abrupt Duration: minute(s):, constant, continues in ED, waxing and waning Timing: single episode today Quality/Severity: moderate, pressure, POUNDING Location: substernal Radiation: L ARM Activities at Onset: rest Prior Chest Pain/Card Workup: PATIENT EVALUATED THE [facility] EMERGENCY DEPARTMENT 2 WEEKS AGO FOR SIMILAR SYMPTOM COMPLEX AND DIAGNOSED WITH ATRIAL FIBRILLATION, PLACED ON METOPROLOL. HPI: Patient presents for evaluation of a constant pounding chest pain and heart palpitations that began while watching TV at home. Patient does refer chest pain currently, described as a moderate pressure sensation. Patient states that although she has no associated dyspnea she became diaphoretic. She took 4 baby aspirin prior to arrival to the emergency department. Past History Travel History Traveled to [place] past 21 day No Medical History Any Pertinent Medical History? see below for history Neurological: NONE EENT: NONE Cardiovascular: AFIB, hypertension Respiratory: NONE Gastrointestinal: NONE Hepatic: NONE Renal: NONE Musculoskeletal: NONE Psychiatric: depression Endocrine: NONE Blood Disorders: NONE Cancer(s): NONE PRECISION HONER/Reproductive: NONE Surgical History Surgical History: cholecystectomy Psychosocial History What is your primary language Pashto Tobacco Use: Never used ETOH Use: occasional use Family History Family History, If Any: MOTHER FH: myocardial infarction, Onset: 50-60. FATHER FH: myocardial infarction, Onset: 40-50. BROTHER FH: myocardial infarction, Onset: 60+. SISTER FH: myocardial infarction, Onset: 50-60. Hx Contributory? No Review of Systems Review of Systems Constitutional: Reports: no symptoms. EENTM: Reports: no symptoms. Respiratory: Reports: no symptoms. Cardiovascular: Reports: see HPI. GI: Reports: no symptoms. Genitourinary: Reports: no symptoms. Musculoskeletal: Reports: no symptoms. Skin: Reports: see HPI. Neurological/Psychological: Reports: no symptoms. Hematologic/Endocrine: Reports: no symptoms. Immunologic/Allergic: Reports: no symptoms. All Other Systems: Reviewed and Negative Physical Exam Physical Exam Cardiovascular: SEE BELOW Comments: Gen.: Well-nourished, well-developed, no acute respiratory distress. Head: Normocephalic, atraumatic. Eyes: Normal inspection bilaterally Ears: Normal inspection bilaterally Nose: Normal inspection Throat/mouth : Moist mucosa Neck: Supple, full range of motion, no goiter Heart: IRRegular rate and rhythm, no murmurs rubs or gallops Lungs: Clear to auscultation bilaterally with normal air entry Chest: Nontender Back: Normal range of motion Abdomen: Soft, nontender, nondistended, normal bowel sounds Extremities: Normal range of motion grossly, equal radial pulses, no cyanosis clubbing or edema, calves nontender Neurologic: Cranial nerves grossly intact, speech is clear Skin: warm and dry Psychiatric: Calm, cooperative, no apparent delusions or hallucinations Core Measures ACS in differential dx? Yes CVA/TIA Diagnosis No Sepsis Present: No Sepsis Focused Exam Completed? No Progress Differential Diagnosis: atrial fibrillation, hyperthyroid, PSVT, PVCs/PACs, unstable angina, V-fib/V-Tach Plan of Care: Orders Procedure Date/time Status Discharge Patient 09/29 UNK Active Diagnostic Imaging: Discussed w/RAD: Radiology Read. CXR Impression: PATIENT: JACKI MACIAS PRESENT AGE: 72 PATIENT ACCOUNT NO: [id number] : 47 LOCATION: [facility] ORDERING PHYSICIAN: Aleks Castillo MD SERVICE DATE: 09/28/17 EXAM TYPE: RAD - XRY-PORTABLE CHEST XRAY EXAMINATION: XR PORTABLE CHEST CLINICAL INFORMATION: Rapid atrial fibrillation. COMPARISON: Chest 09/16/2017 TECHNIQUE: Portable frontal view of the chest was obtained. FINDINGS: No significant abnormality is noted involving the heart, lungs, mediastinum, bony thorax or soft tissues. IMPRESSION: Unremarkable chest examination. No change from 09/16/2017 chest exam. DICTATED BY: Severiano Schrader MD DATE/TIME DICTATED:09/28/172115 JEWELRY CASTING MODEL MAKER:MODESTA DATE/TIME TRANSCRIBED:09/28/172115 CONFIDENTIAL, DO NOT COPY WITHOUT APPROPRIATE AUTHORIZATION. <Electronically signed in Other Vendor System> SIGNED BY: Severiano Schrader MD 09/28/172119 Initial ED EKG: rate (130's), AFIB, nonspecific ST T wave chg Prior EKG: changed (nsr on prior) Repeat EKG: changed (NSR WITH NS ST CHANGES) Comments: 09/28/2017 8:59:11 PM I have updated Jacki on test results so far. She states that her chest pain has nearly resolved. She appears comfortable. Heart rate when at rest in the upper 90s. Blood pressure normal. 09/28/2017 10:00:03 PM patient's case discussed with Osman Santana MD. I have reviewed the patient's last hospitalization for her paroxysmal A. fib. Patient reverted back to normal sinus rhythm at declined anticoagulation given upcoming "back injections". Osman Santana MD does not feel the patient requires emergent anticoagulation given the duration of symptoms. He agrees with hospitalization for rate control. 09/28/2017 11:49:27 PM short time ago patient converted back to normal sinus rhythm. I'm attempting to contact Osman Santana MD to assess if this changes the treatment plan. Repeat EKG and troponin of been ordered. Departure Departure Disposition: STILL A PATIENT Condition: Stable Clinical Impression Primary Impression: Atrial fibrillation Referrals: Maria Elena KHAN,Xavier Roberts (PCP/Family) Departure Forms: Customer Survey General Discharge Information Prescriptions: Current Visit Scripts Metoprolol Tartrate 1 TAB PO BID #60 TAB Admission Note Documentation of Exam: Documentation of any treatments & extenuating circumstances including Concerns Regarding Discharge (functional status, medication knowledge or non-compliance, living conditions, etc.) that warrant an admission rather than observation: Observation Note Spoke With: Chloé Lanza MD Patient In: Non-ED OBS Care Area Rationale for Observation: My rational for observation is as follows: Patient presents with a second paroxysm of atrial fibrillation requiring IV Lopressor for rate control. Although she has returned to normal sinus rhythm during her emergency department stay, her paroxysmal atrial fibrillation places her at high risk of cardioembolic phenomenon including stroke. A rapid ventricular response but also place her at risk of hypotension and acute coronary syndrome. I feel she now requires hospitalization for continuous cardiac monitoring and adjustment of her rate controlling medications. In addition anticoagulation should be strongly considered given her repeated paroxysm of atrial fibrillation. Cardiology consultation should be obtained and echocardiogram considered to assess for wall motion abnormalities or valve disease. . Critical Care Note Critical Care Note Critical Care Time: 30-74 min
[2017-09-28 20:26] LABS: ABSOLUTE BASOPHIL COUNT 0 /CUMM (0.0-0.2); ABSOLUTE EOSINOPHIL COUNT 0.1 /CUMM (0.0-0.7); ABSOLUTE GRANULOCYTE CT 3.7 /CUMM (1.4-6.5); ABSOLUTE LYMPH COUNT 2.6 /CUMM (1.2-3.4); ABSOLUTE MONOCYTE COUNT 0.7 /CUMM (0.10-0.60); BASOPHIL % 0.5 % (0.0-2.0); EOSINOPHIL % 1.2 % (0-5); HEMATOCRIT 44.2 % (37-47); MEAN CORPUSCULAR HGB 32.5 PG (27.0-31.0); MEAN CORPUSCULAR HGB CONC 34.2 G/DL (33.0-37.0); MEAN CORPUSCULAR VOLUME 95.1 FL (81.0-99.0); MEAN PLATELET VOLUME 8.5 FL (7.4-10.4); PLATELET COUNT 251 /CUMM (130-400); RBC DISTRIBUTION WIDTH 13.3 % (11.5-14.5); RED BLOOD CELL CT 4.65 /CUMM (4.20-5.40); WHITE BLOOD CELL COUNT 7.1 /CUMM (4.8-10.8)
--- NOTE | 2017-09-28 21:20 | RADIOLOGY REPORT ---
EXAMINATION: XR PORTABLE CHEST CLINICAL INFORMATION: Rapid atrial fibrillation. COMPARISON: Chest 09/16/2017 TECHNIQUE: Portable frontal view of the chest was obtained. FINDINGS: No significant abnormality is noted involving the heart, lungs, mediastinum, bony thorax or soft tissues. IMPRESSION: Unremarkable chest examination. No change from 09/16/2017 chest exam.
--- NOTE | 2017-09-29 01:57 | History & Physical ---
Beverley Bustillo MD,Ami 09/29/17 0156: General Information and HPI MD Statement: I have seen and personally examined ROCIO MACIAS and documented this H&P. The patient is a 72 year old F who presented with a patient stated chief complaint of [heart palpitations]. Source of Information: patient, old records Exam Limitations: no limitations History of Present Illness: Patient is 72-year-old female with PMH of HTN, HLD, parox afib, extensive family cardiac history including multiple first-degree relatives with early OH presented to the ED with chief complaint of palpitation and chest pain. At the time of interview patient had already was without symptom. Patient noted that her symptoms started this evening at 6:30 pm, while at rest watching TV. Also reported chest pain, moderate pressure-like substernal chest pain, 5/10, radiation to left arm. She denied any SOB, nausea but reported some sweating and lightheadedness. Her symptoms lasted for about 30mins and she decided to come to ED. Patient took 4 baby aspirin before coming to ED. At the ED TNG did not help with pain and caused lightheadedness. Patient was admitted to 2 weeks ago for similar symptoms, was diagnosed with A. fib and was placed on metoprolol, yet with chadvasc of 3 she refused getting anticoagulation given planned back/epidural steroid injection (which she had on Monday). Patient follows with Dr. Simpson and had a stress test about a year ago which was negative. She also had a holter monitor 2 years ago that revealed possible Afib but she did not follow. She had appointment with Dr Sharma and was planned to have another cardiac stress test in 2 weeks. Patient also has history of hyperlipidemia, however he was not able to tolerate any statin therapy (due to muscle and stomach complications). She never smoked or drank alcohol. She reported >4 cardiac attack in first degree family members. 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 FATHER FH: myocardial infarction, Onset: 40-50. BROTHER FH: myocardial infarction, Onset: 60+. SISTER FH: myocardial infarction, Onset: 50-60. Psychosocial History Primary Language: Japanese ETOH Use: occasional use Functional Ability ADLs Independent: dressing, eating, toileting, bathing. Ambulation: independent IADLs Independent: shopping, housework, finances, food prep, telephone, transportation , medication admin. Review of Systems Review of Systems Constitutional: Reports: see HPI. Exam & Diagnostic Data Last 24 Hrs of Vital Signs/I&O Vital Signs Date Time Temp Pulse Resp B/P B/P Pulse O2 O2 Flow FiO2 Mean Ox Delivery Rate 09/29 0247 97.6 60 18 143/76 98 Room Air 09/28 2300 62 133/70 09/28 2202 115 100/78 09/28 2140 113 98/52 09/28 2139 132 98/52 09/28 2121 126 18 102/55 97 Room Air 09/28 2024 108 130/58 09/28 2016 144 161/86 09/28 1934 96.9 103 20 161/86 98 Room Air Intake & Output 09/29 0800 09/29 0000 09/28 1600 Intake Total 800 Output Total 400 Balance 400 Intake, IV 500 Intake, Oral 300 Output, Urine 400 Physical Exam General Appearance Alert, Oriented X3, Cooperative, No Acute Distress Skin No Significant Lesion Skin Temp/Moisture Exam: Warm/Dry Sepsis Skin Exam (color): Normal for Ethnicity HEENT Atraumatic, EOMI Cardiovascular Regular Rate, Normal S1, Normal S2, at time of interview Lungs Clear to Auscultation, Normal Air Movement Abdomen Soft, No Tenderness Neurological Normal Speech, Strength at 5/5 X4 Ext, Cranial Nerves 3-12 NL Extremities No Edema Last 24 Hrs of Labs/Corey: Laboratory Tests 09/28/17 2355: Troponin I 0.01 09/28/17 2014: Anion Gap 12, Estimated GFR > 60, BUN/Creatinine Ratio 21.1, Glucose 103 H, Calcium 10.9 H, Magnesium 1.7, Troponin I < 0.01, TSH 2.970, CBC w Diff NO MAN DIFF REQ, RBC 4.65, MCV 95.1, MCH 32.5 H, MCHC 34.2, RDW 13.3, MPV 8.5, Gran % 52.0, Lymphocytes % 36.9, Monocytes % 9.4 H, Eosinophils % 1.2, Basophils % 0.5 , Absolute Granulocytes 3.7, Absolute Lymphocytes 2.6, Absolute Monocytes 0.7 H , Absolute Eosinophils 0.1, Absolute Basophils 0 Assessment/Plan Assessment: Patient is 72-year-old female presented with chest pain and palpitaion PMH of HTN, HLD, parox afib, extensive family cardiac history including multiple first-degree relatives with early OH VS, Ph Ex at admission: HR max 144, BP 166/86 --> 98/52 EKG: intial afib, converted to sinus at the time of interview Labs at admission: CBC insignificant BEP: k 3.1 Imagings at admission: CXR: Unremarkable chest examination. No change from 09/16/2017 chest exam. Patient was placed under observation in telemetry floor for management of following conditions: Paroxysmal atrial fib Chest pain Chronic medical conditions - admit to tele floor - BP monitor and storage bin tender - continue home medications, recieved IV metoprolol in ED - consider Anticoag - Cardio consult in AM, Dr Santana aware - EKG and TN serial - consider stress test - npo in preparation FC NPO DVT ppx: ALPS and Lovenox As Ranked By This Provider Problem List: 1. Chest pain 2. Atrial fibrillation with rapid ventricular response Core Measures/Misc (01/01) Acute Coronary Syndrome ACS Diagnosis: No Congestive Heart Failure Congestive Heart Failure Diagnosis No Cerebrovascular Accident CVA/TIA Diagnosis: No VTE (View Protocol) VTE Risk Factors Age>40 No Mechanical VTE Prophylaxis d/t N/A MechProphylax Ordered No VTE Pharm Prophylaxis d/t NA PharmProphylax ordered Sepsis (View protocol) Sepsis Present: No If YES complete Sepsis Event Note If YES complete Sepsis Event Note Martin Benjamin 09/29/17 0201: General Information and HPI Allergies/Medications Home Med list Metoprolol Tartrate 25 MG TABLET 1 TAB PO BID HEART RATE Sertraline HCl 100 MG TABLET 1 TAB PO DAILY DEPRESSION (Reported) Core Measures/Misc (01/01) Sepsis (View protocol) If YES complete Sepsis Event Note If YES complete Sepsis Event Note Resident Review Statement Resident Statement: examined this patient, discussed with internal controls manager, agreed with internal controls manager Other Findings: This is a 72-year-old female with past medical history of hypertension, hyperlipidemia, extensive family cardiac history of multiple first-degree relatives with early OH presents to [place] [facility] with recent admission to [place] on 16 September 2017 for chief complaint of chest pain and palpitations presents to [place] ER again with chief complaint of chest pain and palpitations for 45 minutes prior to presentation. She describes her chest pain to be pounding in nature, it began while she was watching TV, substernal in location, moderate pressure kind of pain associated with diaphoresis and palpitations. She denied any dyspnea or shortness of breath, paroxysmal nocturnal dyspnea, nausea, vomiting, diarrhea, constipation, recent fever sore throat. Vitals on presentation temperature of 96.9, pulse of 103 up to 144, respiration of 18, blood pressure of 130/58, troponin I 98/52, up again to 133/70. Physical exam: Relevant labs white count of 7.1, H/H of 15.1/44.2, platelets of 251. Sodium of 139, potassium of 3.4, BUN/creatinine 19/0.9, glucose of 103, calcium of 10.9. Initial ED EKG showed atrial fibrillation with a rate of 130s Chest x-ray did not show any acute cardiopulmonary changes. She received a one-time of 5 mg IV Lopressor, 0.5 mg nitroglycerin and another 5 mg IV Lopressor with a 500 mL of normal saline bolus. Last echocardiogram 16 September 2017 showed left ventricular ejection fraction of 55- 60%, no obvious wall motion abnormality right ventricular systolic pressure 30 mmHg. 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 We will admit him to telemetry under observation for 24 hours. Problem list along with assessment and plan. Problem #1 atrial fibrillation with rapid ventricular rate. Problem #2 chest pain with palpitations with positive family history of premature cardiovascular disease. Problem #3 hypokalemia. Problem #4 hypertension. Problem #5 hyperlipidemia, not treated with statin. Plan. Continue to observe the patient on telemetry floor, continue to monitor intake and output, troponin and EKG 3, continue rate control with metoprolol, will hold off anticoagulation for now. Check thyroid function tests. Continue to maintain potassium above 4 and magnesium of 2, recent echocardiogram therefore no need to repeat echo, cardiology consult with Dr. D'reynaga in the morning.Patient has stress test planned as OP in 2 weeks, will keep npo in case gets planned for stres test in am ,ct metoprolol 12.5 BID for now. Patient has [id number] score of 3, consider to start group home AC. NPO DVT prophylaxis with heparin. Full code. Chloé Lanza 09/29/17 0548: Core Measures/Misc (01/01) Sepsis (View protocol) If YES complete Sepsis Event Note If YES complete Sepsis Event Note Attending MD Review Statement Attending Statement Attending MD Statement: examined this patient, discuss w/resident/PA/CONTACT LENS TECHNICIAN, agreed w/resident/PA/CONTACT LENS TECHNICIAN, reviewed EMR data (avail), reviewed images, amended to note Attending Assessment/Plan: CC: Chest pain and palpitations PMH: HTN, HLD Patient came to ER for left-sided chest pain and palpitation that started approximately 45 minutes prior to arrival to ER. Chest pain was radiating to axilla, denied any lightheadedness or vision double vision neurological weakness. No recent infection. Patient was at rest when this episode happened. She took 4 baby aspirins at home without much relief so she came to ER. Patient had similar episode on September 16. Patient was observed in hospital at that time and was started on metoprolol. Patient is expected to have outpatient stress test in 1 week. Currently she does not have any pain or palpitation, appears comfortable , complete ROS unremarkable. Vitals: Temperature 96.9, pulse 103, RR 20, blood pressure 161/86, saturating 98 % on room air On exam: A O 3, cooperative, no acute distress, neck supple, JVD normal, no lymphadenopathy, mucosa moist, no focal neurological deficit, no dependent edema , no obvious skin rashes or inflammation CVS: S1-S2, RRR. RS: Clear to auscultate bilaterally. Abdomen: Soft, NT, ND, bowel sounds present. CXR: Unremarkable chest examination. No change from 09/16/2017 chest exam. Assessment and plan 72-year-old female with past medical history significant for HTN, HLD and very significant family history for CAD presented in ER for palpitations and chest pain. Patient has history of paroxysmal atrial fibrillation, recently hospitalized on September 16 for the similar episode. Patient's heart rate was in 140s on arrival and received 5 mg of IV metoprolol followed by Nitropatch. Her blood pressure dropped to 98/52, Nitropatch was discontinued and she was hydrated with normal saline. Patient converted to spontaneous sinus rhythm. Initial ECG shows rate related ST depression in lateral leads. Patient is expected to have outpatient stress test, we will get cardiology involved if they want to get the stress test done while in hospital. Her chest pain appears secondary to a rapid heart rate and demand but at the same time ACS should be ruled out. Her [id number] Vasc score is 3 and will require anticoagulation, we will obtain cardiology opinion. + Chest pain rule out ACS + Paroxysmal A. fib with rapid ventricular rate + History of HTN, HLD - Place in observation on telemetry - Continuous telemetry monitoring - Serial troponin and EKGs - Check magnesium and phosphorus - Cardiology consult in a.m. - Continue aspirin, beta heidi - Nothing by mouth for now if stress test need to be done tomorrow. - Need to start oral anticoagulation in a.m. after cardiology evaluation
[2017-09-29 03:38] VITALS: BP 132/84
[2017-09-29 06:27] VITALS: BP 122/68
[2017-09-29 08:00] LABS: ABSOLUTE BASOPHIL COUNT 0 /CUMM (0.0-0.2); ABSOLUTE EOSINOPHIL COUNT 0.1 /CUMM (0.0-0.7); ABSOLUTE LYMPH COUNT 2.2 /CUMM (1.2-3.4); ABSOLUTE MONOCYTE COUNT 0.6 /CUMM (0.10-0.60); BASOPHIL % 0.3 % (0.0-2.0); EOSINOPHIL % 1.9 % (0-5); GRANULOCYTE % 51.3 % (42.2-75.2); HEMATOCRIT 40.1 % (37-47); MEAN CORPUSCULAR HGB 33.1 PG (27.0-31.0); MEAN CORPUSCULAR HGB CONC 34.5 G/DL (33.0-37.0); MEAN PLATELET VOLUME 8.8 FL (7.4-10.4); PLATELET COUNT 213 /CUMM (130-400); RBC DISTRIBUTION WIDTH 13.6 % (11.5-14.5); RED BLOOD CELL CT 4.18 /CUMM (4.20-5.40); WHITE BLOOD CELL COUNT 5.9 /CUMM (4.8-10.8)
--- NOTE | 2017-09-29 10:59 | Cons- Cardiology ---
General Information and HPI Consulting Request Date of Consult: 09/29/17 Requested By: Chloé Lanza MD Reason for Consult: Atrial fibrillation Source of Information: patient, family, old records History of Present Illness: This is a 72-year-old female with a recent diagnosis of symptomatic atrial fibrillation and hypertension who presents to [facility] with a chief complaint of acute onset palpitations along with chest discomfort. The patient was seen here in the hospital recently with an episode of atrial fibrillation and was discharged and has been following up in our office. Anticoagulation has been deferred due to recent elective epidural injections for lower back pain. Recent echocardiogram showed a normal ejection fraction. During her previous hospitalization she spontaneously converted to sinus rhythm and on this presentation she also spontaneously converted to sinus rhythm. Prior to the episode she reports no exertional chest pain, shortness of breath, or decrease in exertional tolerance. Denies headache, slurring speech, or focal weakness. She tells me she did have the epidural injection on Monday. Denies any subjective fever or cough. Allergies/Medications Allergies: Coded Allergies: No Known Allergies (09/16/17) Home Med List: Hydrochlorothiazide 25 MG TABLET 1 TAB PO DAILY BP (Reported) Metoprolol Tartrate 25 MG TABLET 0.5 TAB PO BID RAPID HEART RATE . Sertraline HCl 100 MG TABLET 1 TAB PO DAILY DEPRESSION (Reported) Current Medications: Current Medications Sig/Shannan Start time Last Medication Dose Route Stop Time Status Admin Enoxaparin Sodium 40 MG DAILY 09/29 0900 AC 09/29 SC 0805 Metoprolol Tartrate 0 .STK-MED ONE 09/29 2131 DC IV Metoprolol Tartrate 5 MG ONCE ONE 09/28 2129 DC 09/28 IV 09/28 Metoprolol Tartrate 5 MG ONCE ONE 09/28 2014 DC 09/28 IV 09/28 Metoprolol Tartrate 0 .STK-MED ONE 09/28 2010 DC IV Nitroglycerin 0 .STK-MED ONE 09/28 2017 DC TOP Nitroglycerin 0.5 GM ONCE ONE 09/28 2014 DC 09/28 TOP 09/28 Potassium Chloride 0 .STK-MED ONE 09/29 0249 DC PO Potassium Chloride 40 MEQ ONCE ONE 09/29 0245 DC 09/29 PO 09/29 024 0251 Sodium Chloride 500 ML BOLUS ONE 09/28 2129 DC 09/28 IV 09/28 2228 2140 Vancomycin HCl 0 .STK-MED ONE 09/28 2221 DC .ROUTE Review of Systems Review of Systems: Review of systems as per HPI. The remainder of a 10 point review of systems was reviewed and was otherwise negative. 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 FATHER FH: myocardial infarction, Onset: 40-50. BROTHER FH: myocardial infarction, Onset: 60+. SISTER FH: myocardial infarction, Onset: 50-60. Psychosocial History Primary Language: Albanian Smoking Status: Never Smoked ETOH Use: occasional use Functional Ability ADLs Independent: dressing, eating, toileting, bathing. Ambulation: independent IADLs Independent: shopping, housework, finances, food prep, telephone, transportation , medication admin. Exam & Diagnostic Data Vital Signs and I&O Vital Signs Date Time Temp Pulse Resp B/P B/P Pulse O2 O2 Flow FiO2 Mean Ox Delivery Rate 09/29 626 97.8 58 18 122/68 98 Room Air 09/29 626 97.8 58 18 122/68 98 Room Air 09/29 0338 98.0 58 20 132/84 98 Room Air 09/29 0247 97.6 60 18 143/76 98 Room Air 09/28 2300 62 133/70 09/28 2202 115 100/78 09/28 2140 113 98/52 09/28 2138 132 98/52 09/28 2121 126 18 102/55 97 Room Air 09/28 2024 108 130/58 09/28 2016 144 161/86 09/28 1934 96.9 103 20 161/86 98 Room Air Intake & Output 09/29 1600 09/29 0800 09/29 0000 09/28 1600 09/28 0800 09/28 0000 Intake Total 1140 Output Total 850 Balance 290 Intake, IV 500 Intake, Oral 640 Output, Urine 850 Patient 130 lb Weight Physical Exam: General: no apparent distress. Alert. Eyes: No obvious scleral icterus. HEENT: No jugular venous distention or abnormal jugular venous pulsations. Cardiovascular: Normal intensity S1/S2. PMI not grossly displaced. Respiratory: Lungs clear to auscultation bilaterally. Abdomen: Soft, nontender with no guarding or rebound tenderness. Musculoskeletal: No clubbing or cyanosis noted Skin: warm Neurologic: No gross focal deficits noted. Lymph: No gross lymphadenopathy. Labs/Corey Results: Laboratory Tests 09/29 09/29 09/29 09/28 1010 0709 0330 2355 Chemistry Sodium (137 - 145 mmol/L) 140 Potassium (3.5 - 5.1 mmol/L) 4.0 Chloride (98 - 107 mmol/L) 104 Carbon Dioxide (22 - 30 mmol/L) 29 Anion Gap (5 - 16) 7 BUN (7 - 17 mg/dL) 16 Creatinine (0.5 - 1.0 mg/dL) 0.7 Estimated GFR (>60 ml/min) > 60 BUN/Creatinine Ratio (7 - 25 %) 22.9 Troponin I (< 0.11 ng/ml) Pending 0.01 0.01 Triglycerides (<150 mg/dL) 69 Cholesterol (<200 MG/DL) 265 H LDL Cholesterol, Calc (65 - 129 mg/dL) 198 H HDL Cholesterol (40 - 60 mg/dL) 54 Cholesterol/HDL Ratio (0.00 - 4.23 %) 4.9 H Hematology CBC w Diff NO MAN DIFF REQ WBC (4.8 - 10.8 /CUMM) 5.9 RBC (4.20 - 5.40 /CUMM) 4.18 L Hgb (12.0 - 16.0 G/DL) 13.9 Hct (37 - 47 %) 40.1 MCV (81.0 - 99.0 FL) 96.0 MCH (27.0 - 31.0 PG) 33.1 H MCHC (33.0 - 37.0 G/DL) 34.5 RDW (11.5 - 14.5 %) 13.6 Plt Count (130 - 400 /CUMM) 213 MPV (7.4 - 10.4 FL) 8.8 Gran % (42.2 - 75.2 %) 51.3 Lymphocytes % (20.5 - 51.1 %) 37.2 Monocytes % (1.7 - 9.3 %) 9.3 Eosinophils % (0 - 5 %) 1.9 Basophils % (0.0 - 2.0 %) 0.3 Absolute Granulocytes (1.4 - 6.5 /CUMM) 3.0 Absolute Lymphocytes (1.2 - 3.4 /CUMM) 2.2 Absolute Monocytes (0.10 - 0.60 /CUMM) 0.6 Absolute Eosinophils (0.0 - 0.7 /CUMM) 0.1 Absolute Basophils (0.0 - 0.2 /CUMM) 0 09/28 2013 Chemistry Sodium (137 - 145 mmol/L) 139 Potassium (3.5 - 5.1 mmol/L) 3.4 L Chloride (98 - 107 mmol/L) 99 Carbon Dioxide (22 - 30 mmol/L) 28 Anion Gap (5 - 16) 12 BUN (7 - 17 mg/dL) 19 H Creatinine (0.5 - 1.0 mg/dL) 0.9 Estimated GFR (>60 ml/min) > 60 BUN/Creatinine Ratio (7 - 25 %) 21.1 Glucose (65 - 99 mg/dL) 103 H Calcium (8.4 - 10.2 mg/dL) 10.9 H Magnesium (1.6 - 2.3 mg/dL) 1.7 Troponin I (< 0.11 ng/ml) < 0.01 TSH (0.270 - 4.200 uIU/mL) 2.970 Hematology CBC w Diff NO MAN DIFF REQ WBC (4.8 - 10.8 /CUMM) 7.1 RBC (4.20 - 5.40 /CUMM) 4.65 Hgb (12.0 - 16.0 G/DL) 15.1 Hct (37 - 47 %) 44.2 MCV (81.0 - 99.0 FL) 95.1 MCH (27.0 - 31.0 PG) 32.5 H MCHC (33.0 - 37.0 G/DL) 34.2 RDW (11.5 - 14.5 %) 13.3 Plt Count (130 - 400 /CUMM) 251 MPV (7.4 - 10.4 FL) 8.5 Gran % (42.2 - 75.2 %) 52.0 Lymphocytes % (20.5 - 51.1 %) 36.9 Monocytes % (1.7 - 9.3 %) 9.4 H Eosinophils % (0 - 5 %) 1.2 Basophils % (0.0 - 2.0 %) 0.5 Absolute Granulocytes (1.4 - 6.5 /CUMM) 3.7 Absolute Lymphocytes (1.2 - 3.4 /CUMM) 2.6 Absolute Monocytes (0.10 - 0.60 /CUMM) 0.7 H Absolute Eosinophils (0.0 - 0.7 /CUMM) 0.1 Absolute Basophils (0.0 - 0.2 /CUMM) 0 Diagnostic Data EKG Results Tracing was personally reviewed and shows atrial fibrillation 139 bpm with nonspecific STT abnormality CXR Results Unremarkable chest examination. No change from 09/16/2017 chest exam. Other Results Telemetry tracings were personally reviewed and shows sinus rhythm Recent echocardiogram 1. This was a technically difficult examination. 2. [id number] aortic sclerosis is present with no valvular stenosis or insufficiency. 3. Mitral leaflet thickening is present with minimal mitral insufficiency. 4. No significant pericardial fluid was detected on the study. 5. The left ventricular chamber size is normal with a normal ejection fraction and no visible resting wall motion abnormalities. 6. Moderate tricuspid insufficiency is present. Mild right atrial enlargement is noted. There is no evidence of pulmonary hypertension. 7. No prior study was available for comparison. Assessment/Plan Assessment/Plan 1. Paroxysmal symptomatic atrial fibrillation 2. History of hypertension 3. Recent epidural injection The patient presents with recurrent symptomatic atrial fibrillation but has again spontaneously converted to sinus rhythm. Recent echocardiogram as above with a normal ejection fraction and no evidence of mitral stenosis. We are holding off on initiating anticoagulation for now given her recent epidural injection but she will likely be able to start on oral anticoagulation when she follows up with her lieutenant governor next week. She is already scheduled for outpatient Holter monitor and stress test. I would recommend increasing her metoprolol to 25 mg p.o. twice daily and discontinuing her hydrochlorothiazide. She may be a candidate for atrial fibrillation in the future if she continues to have symptomatic recurrences. She should follow-up in our office next week. Juventino Santana MD [facility] Consult Acknowledgment - Thank you for your consult request.
[2017-09-29] MEDS ORDERED: METOPROLOL TART25 M1 PO (11:37)
--- NOTE | 2017-09-29 11:39 | Patient Discharge Instructions ---
Discharge Instructions General Discharge Information You were seen/treated for: Chest pain Special Instructions: -Please follow-up with your primary care doctor after discharge -Please follow-up with your director radio within 1 week of discharge for Holter monitor and stress test -On director radio's recommendation we are stopping 1 of blood pressure medication and increasing the dose of other for better control of heart rate. -You will need to be started on anticoagulation in the near future Diet Recommended Diet: Heart Healthy Activity Activity Self Limited: Yes Acute Coronary Syndrome Inclusion Criteria At DC or during hospital stay patient has or had the following: ACS DIAGNOSIS No Discharge Core Measures Meds if any: Prescribed or Continued at Discharge Meds if any: NOT Prescribed or Continued at Discharge Congestive Heart Failure Inclusion Criteria At DC or during hospital stay patient has or had the following: CHF DIAGNOSIS No Discharge Core Measures Meds if any: Prescribed or Continued at Discharge Meds if any: NOT Prescribed or Continued at Discharge Cerebrovascular accident Inclusion Criteria At DC or during hospital stay patient has or had the following: CVA/TIA Diagnosis No Discharge Core Measures Meds if any: Prescribed or Continued at Discharge Meds if any: NOT Prescribed or Continued at Discharge Venous thromboembolism Inclusion Criteria VTE Diagnosis No VTE Type NONE VTE Confirmed by (Test) NONE Discharge Core Measures - Per Current guidelines, there needs to be overlap - treatment for the first 5 days of Warfarin therapy. - If discharged on Warfarin prior to 5 days of - overlap therapy, the patient will need to be - assessed for post discharge needs including - *Post discharge parental anticoagulation - *Warfarin and/or parental anticoagulation education - *Follow up date to check INR post discharge At least 5 days overlap therapy as Inpatient No Meds if any: Prescribed or Continued at Discharge Note: Overlap Therapy is Warfarin and Anticoagulant Meds if any: NOT Prescribed or Continued at Discharge
--- NOTE | 2017-09-29 13:10 | PN- Att Addend ---
Attending Addendum Attending Brief Note 72F PMH HTN, HLD, presenting with palpitations found to be in rapid atrial fibrillation initially, pushed 5mg IV Metoprolol in ED with borderline hypotension, spontaneously converted to NSR overnight. Patient is asymptomatic and feels well today, HR NSR and well controlled. Repeat EKG and troponin negative. Patient is stable for discharge home. Seen by cardiology as inpatient, increased Metoprolol, discontinued HCTZ. Anti-coagulation held off due to recent epidural injection. Will be seen by cardiology in 2 days for follow up and for Holter monitor. Anti-coagulation will be started as an outpatient.
== END 2017-09-29 13:05 ==
LOC: ERH 19:28 → ERHI 09-29 00:31 → ENRESERV 09-29 02:37 → 1NO 09-29 03:01
PROVIDERS: Emergency Medicine; Internal Medicine
DX: I48.0 Paroxysmal atrial fibrillation (principal); R07.9 Chest pain, unspecified; I10 Essential (primary) hypertension; E78.5 Hyperlipidemia, unspecified; F32.9 Major depressive disorder, single episode, unspecified; E87.6 Hypokalemia
CPT/HCPCS: 6020; 36592; 71045; 82436; 93005; 93010; 96372; 96374; 96376; 99291; G0378; J1650; J3370; J7040